=== PATIENT | female | born 1980 | race Caucasian/White ===

== ENCOUNTER → 2023-04-06 | Outpatient (CLI) | payer BC ==
--- NOTE | 2023-04-06 11:29 | MM ---
Reason for Exam: Clinical finding. Last screening mammogram was performed 12 month(s) ago. Indicated Problems: Lump or thickening of the left side for 2 Day(s). Patient History: Menarche at age 15. First Full-Term at age 30. Patient has history of breast feeding. Currently using Hormonal Contraceptives, for 12 years. Maternal grandmother had breast cancer at or over age 50. Paternal grandmother had breast cancer at or over age 50. Risk Values: Magy 5 year model risk: 0.7%. NCI Lifetime model risk: 11.0%. Prior Study Comparison: 03/29/2022 Bilateral MG screening mammo w CAD, [facility]. Tissue Density: The breast tissue is heterogeneously dense. This may lower the sensitivity of mammography. Findings: Analyzed By CAD. Palpable site corresponds to a 9:00 subareolar 4 cm mass. An additional 1.4 cm nodular focal asymmetry 3:00 position middle depth. Ultrasound recommended. Overall Assessment: Incomplete: need additional imaging evaluation, BI-RAD 0 Management: Diagnostic Breast Ultrasound of the left breast. Electronically signed and approved by: Quinton Munoz M.D. Radiologist
--- NOTE | 2023-04-06 12:10 | USB ---
Reason for Exam: Additional evaluation requested from prior study. Patient History: Menarche at age 15. First Full-Term at age 30. Patient has history of breast feeding. Currently using Hormonal Contraceptives, for 12 years. Maternal grandmother had breast cancer at or over age 50. Paternal grandmother had breast cancer at or over age 50. Risk Values: Magy 5 year model risk: 0.7%. NCI Lifetime model risk: 11.0%. Technique: Method: Targeted. Prior Study Comparison: 03/29/2022 Bilateral MG screening mammo w CAD, [facility]. Findings: The lateral section of the breast of the left breast, the area of palpable concern of the left breast, the axilla of the left breast and the retroareolar of the left breast were scanned. Scanning the patient's 9:00 subareolar palpable site as well as 2-5 o'clock position and axilla. * Targeted ultrasound at the palpable site, 9:00 behind the nipple shows a very large cystic structure with uniform hypoechogenicity measuring up to 3.8 cm. Likely extensive internal debris. * There is an adjacent small benign 8 mm cyst. * At the 3:00 position, 5 cm from the nipple, possible mammographic correlate, there is an oval, mildly lobulated solid hypoechoic mass measuring 1.4 x 1.0 x 0.8 cm. There is posterior through transmission. This may represent a fibroadenoma but other etiology should be excluded. Tissue sampling recommended. * At 4:00 position, 5 cm from the nipple, either prominent of fat lobule versus intramammary lymph node measuring 1 cm short axis. This can be reassessed at follow-up. * At the 5:00 position, 5 cm from the nipple, there is a 1.0 cm cyst cluster. * No other solid or cystic lesion or axillary adenopathy. Overall Assessment: Suspicious, BI-RAD 4 Management: Ultrasound Core Biopsy of the left breast. Palpable site aspiration and 3:00 mass biopsy. Electronically signed and approved by: Quinton Munoz M.D. Radiologist
== END | disposition home or self-care (01) ==
LOC: RADMAMWWP 10:35
PROVIDERS: ATTEND Obstetrics & Gynecology
DX: N63.21 Unspecified lump in the left breast, upper outer quadrant (principal); Z80.3 Family history of malignant neoplasm of breast; R92.332 Mammographic heterogeneous density, left breast
CPT/HCPCS: 77062; 77066

== ENCOUNTER → 2023-04-20 | Day surgery (SDC) | payer BC ==
--- NOTE | 2023-04-28 11:24 | MM ---
Reason for Exam: Post Procedure Mammogram. Last screening mammogram was performed less than 1 month ago. Patient History: Menarche at age 15. First Full-Term at age 30. Patient has history of breast feeding. Currently using Hormonal Contraceptives, for 12 years. Maternal grandmother had breast cancer at or over age 50. Paternal grandmother had breast cancer at or over age 50. Risk Values: Magy 5 year model risk: 0.7%. NCI Lifetime model risk: 11.0%. Prior Study Comparison: 03/29/2022 Bilateral MG screening mammo w CAD, [facility]. 04/06/2023 Left US breast limited LT, [facility]. 04/06/2023 Bilateral MG 3D diag mammo w/cad [facility], [facility]. Tissue Density: Left: The breasts are heterogeneously dense, which may obscure small masses. Pathology Description: Location: 9 o'clock. Pathology Description: Location: 3 o'clock. Marker Left Behind. Needle Type: Celero Cores: 3 Gauge: 12 The procedure of ultrasound guided core biopsy was explained to the patient. Benefits, alternatives, and risks were discussed. An informed consent was then obtained. The patient was placed in supine positioning for imaging and for the procedure. The overlying skin was prepped and draped in usual sterile fashion. Lidocaine buffered with bicarbonate was used as anesthetic into the skin and subcutaneous tissue up to area of concern in the left 3:00 breast. Also localized was a complex retroareolar cyst at the left 9:00 position. Under ultrasound guidance, a 12-gauge vacuum assisted biopsy gun device was used to obtain 3 core samples. Following this, a biopsy clip was left in lesion. Subsequently retroareolar cyst was completely aspirated with 15 cc of green turbid fluid obtained and sent to cytology for further evaluation. The patient tolerated the procedure well without any immediate complication. The patient was kept in the radiology department for short stay after the procedure and then discharged home in stable condition. Postprocedure mammogram: The patient was transferred to mammography for physician ordered post procedure mammogram for clip placement verification. Impression: Successful, uncomplicated ultrasound guided core biopsy of area of concern in the left 3:00 breast, full pathology results to follow. Successful aspiration of the retroareolar cyst. Pathology Results: Result: Benign, Fibroadenoma. LEFT BREAST, THREE O'CLOCK, ULTRASOUND GUIDED NEEDLE CORE BIOPSY: Fibroadenoma. Overall Assessment: Benign Assessment: MG diagnostic mammo LT wo CAD. - Left: Benign, BI-RAD 2. Management: Diagnostic Mammogram of the left breast in 6 months. Electronically signed and approved by: Kyle Hernandez M.D. Radiologis
== END ==
LOC: RADUSWWP 07:42
PROVIDERS: ATTEND Surgery
DX: D24.2 Benign neoplasm of left breast (principal); Z80.3 Family history of malignant neoplasm of breast
CPT/HCPCS: 88305; 88173; 77065; 19000; 19083; A4648; 76942

== ENCOUNTER → 2024-04-16 | Outpatient (CLI) | payer BC ==
--- NOTE | 2024-04-16 15:06 | USB ---
Reason for Exam: Additional evaluation requested from abnormal screening. Patient History: Menarche at age 15. First Full-Term at age 30. Patient has history of breast feeding. Currently using Hormonal Contraceptives, for 12 years. 04/20/2023, US breast aspiration single LT on the Left side. 04/20/2023, Benign US biopsy breast VAD LT on the left side. Maternal grandmother had breast cancer at or over age 50. Paternal grandmother had breast cancer at or over age 50. Risk Values: Magy 5 year model risk: 1.2%. NCI Lifetime model risk: 13.2%. Technique: Method: Targeted. Prior Study Comparison: 03/29/2022 Bilateral MG screening mammo w CAD, [facility]. 04/06/2023 Bilateral MG 3D diag mammo w/cad [facility], [facility]. 04/20/2023 Left MG diagnostic mammo LT wo CAD., [facility]. Findings: The lower outer quadrant of the left breast, the axilla of the left breast and the retroareolar of the left breast were scanned. Targeted ultrasound right breast 12:00 palpable site and additional scanning along the 3:00 to 5:00 area. Axillary scanning and posterior nipple scanning. At the 12:00 palpable site, there is a benign 7 mm cyst. At the 3:00 position, 5 cm from the nipple, previous biopsy-proven fibroadenoma measuring 1.3 cm with adjacent microclip. At the 4:00 position, there is an elongated isoechoic circumscribed area measuring 2.0 x 0.9 x 0.5 cm. This resembles surrounding tissue and is suspected to represent a prominent fat lobule, unchanged. An additional precautionary reassessment in one year can be performed. At the 5:00 position, 5 cm from the nipple, there is a cyst cluster versus minimally complex cyst. This measures 7 x 6 x 6 mm versus 9 mm back on 04/06/2023. This favors benign etiology. Precautionary reassessment in one year can be performed. No other solid cystic lesion or axillary adenopathy. Overall Assessment: Probably benign, BI-RAD 3 Management: Diagnostic Mammogram of both breasts in 1 year. Diagnostic Breast Ultrasound of the left breast in 1 year. To reassess the 4:00 and 5:00 areas, relatively stable over the last year. A clinical breast exam by your physician is recommended on an annual basis and results should be correlated with mammographic findings. This exam should not preclude additional follow-up of suspicious palpable abnormalities. Results were given to the patient verbally at the time of exam. [facility], , 04/16/2024 2:59 PM. Electronically signed and approved by: Quinton Munoz M.D. Radiologist
--- NOTE | 2024-04-16 15:08 | MM ---
Reason for Exam: Follow-up at short interval from prior study. Last mammogram was performed 1 year(s) and 1 month(s) ago. Patient History: Menarche at age 15. First Full-Term at age 30. Patient has history of breast feeding. Currently using Hormonal Contraceptives, for 12 years. 04/20/2023, US breast aspiration single LT on the Left side. 04/20/2023, Benign US biopsy breast VAD LT on the left side. Maternal grandmother had breast cancer at or over age 50. Paternal grandmother had breast cancer at or over age 50. Risk Values: Magy 5 year model risk: 1.2%. NCI Lifetime model risk: 13.2%. Prior Study Comparison: 03/29/2022 Bilateral MG screening mammo w CAD, [facility]. 04/06/2023 Left US breast limited LT, [facility]. 04/06/2023 Bilateral MG 3D diag mammo w/cad DONNIE, [facility]. Tissue Density: The breasts are heterogeneously dense, which may obscure small masses. Findings: Analyzed By CAD. Similar nodularity 3:00 left breast middle depth with adjacent microclip related to known, biopsy-proven fibroadenoma. There is a palpable marker on the left close to the nipple. Additional microclip medial subareolar left breast from previous benign aspiration. Bilateral areas of asymmetric density appear unchanged. Overall Assessment: Incomplete: need additional imaging evaluation, BI-RAD 0 Management: Diagnostic Breast Ultrasound of the left breast. [facility], , 04/16/2024 3:04 PM. Electronically signed and approved by: Quinton Munoz M.D. Radiologist
== END | disposition home or self-care (01) ==
LOC: RADMAMWWP 13:17
PROVIDERS: ATTEND Surgery
DX: R92.8 Other abnormal and inconclusive findings on diagnostic imaging of breast (principal); R92.333 Mammographic heterogeneous density, bilateral breasts; Z80.3 Family history of malignant neoplasm of breast; Z79.3 Long term (current) use of hormonal contraceptives
CPT/HCPCS: 77062; 77066